=== PATIENT | male | born 1975 | race Caucasian/White ===

== ENCOUNTER 2022-04-30 14:26 | Emergency (ER) | payer OTHER ==
[2022-04-30] VITALS (164 sets, daily range): BP systolic 94–143; BP diastolic 57–104
[2022-04-30] MEDS ORDERED: METFORMIN500 M2 PO (14:52)
[2022-04-30] MEDS ORDERED: ALOGLIPTIN25 MG (14:53)
[2022-04-30] MEDS ORDERED: ALVESCO80 MCG/ACT (14:53)
[2022-04-30] MEDS ORDERED: LISINOPRIL10 MG PO (14:54)
[2022-04-30] MEDS ORDERED: ATENOLOL25 MG PO (14:54)
[2022-04-30] MEDS ORDERED: PROTONIX20 M1 PO (14:55)
[2022-04-30] MEDS ORDERED: [UNRECOGNIZED DRUG - CODE] PO (14:56)
[2022-04-30 15:02] LABS: URINE BILIRUBIN - DIPSTICK NEGATIVE (NEGATIVE); URINE BLOOD DIPSTICK NEGATIVE (NEGATIVE); URINE COLOR YELLOW; URINE GLUCOSE - DIPSTICK >=1000 mg/dL (NEGATIVE); URINE KETONE NEGATIVE (NEGATIVE); URINE LEUK ESTERASE NEGATIVE (NEGATIVE); URINE PROTEIN - DIPSTICK NEGATIVE (NEG-TRACE); URINE SPECIFIC GRAVITY 1.015; URINE UROBILINOGEN - DIPSTICK 0.2 E.U./dL (0.2)
[2022-04-30 15:03] LABS: URINE NITRITE - DIPSTICK NEGATIVE (Negative)
[2022-04-30 15:05] LABS: BASO% 0.3 % (0-3); EOS% 2.8 % (0-8); HEMATOCRIT 41.5 % (39.0-50.0); HEMOGLOBIN 14.2 g/dl (14.0-18.0); IMMATURE GRANULOCYTES 0.3 % (0.0-5.0); LYMPH% 18.1 % (15-41); MEAN CELL VOLUME 88.3 fL CALC (80.0-100.0); MEAN CORPUSCULAR HGB 30.2 pG CALC (26.0-32.0); MEAN CORPUSCULAR HGB CONC 34.2 g/dL CAL (32.0-36.0); MONO% 9.8 % (2-13); NEUT# 4.89 thou/uL (1.82-7.42); NEUT% 68.7 % (42-76); RED BLOOD COUNT 4.7 mill/uL (4.70-6.10); RED CELL DISTRI WIDTH 12.7 % (11.5-15.5)
[2022-04-30 15:15] LABS: ALBUMIN 4.5 g/dL (3.2-5.0); ALKALINE PHOSPHATASE 114 u/l (38-126); BILIRUBIN, TOTAL 0.4 mg/dL (0.0-1.4); BUN 11 mg/dL (9-20); BUN/CREATININE RATIO 17 (12-20 (CALC)); CARBON DIOXIDE 26 mmol/l (22-30); CHLORIDE 100 mmol/l (95-108); CREATININE 0.6 mg/dL (0.7-1.3); GFR FOR AFR.AMER. > 60 ML/MIN (>=60 (CALC)); GFR OTHER RACES > 60 ML/MIN (>=60 (CALC)); SGOT/AST 18 u/l (17-59); SODIUM 132 mmol/l (137-146); TOTAL PROTEIN 7.3 g/dL (6.3-8.2)
[2022-04-30 15:22] LABS: ANION GAP 12 (6-22 (CALC)); POTASSIUM 5.9 mmol/l (3.5-5.1)
[2022-04-30 17:19] LABS: MAGNESIUM 1.8 mg/dL (1.6-2.3); POTASSIUM 3.9 mmol/l (3.5-5.1)
[2022-05-01] VITALS (10 sets, daily range): BP systolic 109–120; BP diastolic 63–74
== END 2022-05-01 00:33 | DRG 918 ==
LOC: ED 14:26
PROVIDERS: Family Medicine
DX: T50.992A Poisoning by other drugs, medicaments and biological substances, intentional self-harm, initial encounter (principal)
CPT/HCPCS: Q9967